=== PATIENT | male | born 1940 | race African-American/Black ===

== ENCOUNTER 2018-01-04 14:18 | Inpatient (IN) | payer BC, OTHER ==
[~2018-01-04] VITALS: Ht 175.3 cm; Wt 83.1 kg
--- NOTE | ~2018-01-04 | PLAN ---
[facility] [place] [address] REHAB UNIT PLAN OF CARE Name: MACARENA HINDS Room #: 506-1 ADM IN M.R.#: [id number] Admission: 01/04/18 Attend Phys: Sean Posada MD Discharge: Date of : 40 Report #: [id number] THIS REPORT FOR: //name// CC: Sean Posada [facility] unknown DATE OF SERVICE: 01/06/2018 SUBJECTIVE: The patient was seen back earlier this morning. Temperature 36.6, pulse 77, respirations 18 and blood pressure 151/74. He was in no distress. He has been involved with therapies with transfers, contact guard, gait contact guard 250 feet without a device. Standby assistance with bed mobility. In occupational therapy, lower body dressing is mod assist with upper body dressing, supervision. He does have mild comprehensive deficits. ASSESSMENT: 1. 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 2. History of pituitary tumor resection. 3. Functional mobility and ADL deficits. 4. History of bowel obstruction, status post colon resection. 5. Hypertension. 6. Hyperlipidemia. 7. Diabetes mellitus. 8. Chronic lower extremity edema for which he uses support hose. 9. Chronic kidney disease stage 4. 10. Gastrointestinal and deep venous thrombosis prophylaxis. PLAN: The overall plan of care is based on the preadmission screen, post-admission physician evaluation and information garnered from therapy assessments. 1. Estimated length of stay is at least 7-10 days. 2. Medical prognosis is reasonably good. 3. Anticipated interventions includes the interdisciplinary acute inpatient rehabilitation program with PT and OT and speech, rehabilitation nursing assisting regarding medication management, skin care prophylaxis, bowel and bladder issues and nursing education. We are having the career development consultant physicians involved as well. 4. Anticipated functional outcomes would be for the patient to become modified independent with transfers, mobility and ADLs, so that he can return back to the home setting. 5. Discharge destination would be back to his home where he lives in a house alone, 2 stories can stay on the 1st floor. 6. Expected therapy by discipline includes PT, OT and speech 1 hour per day each five days a week throughout the [place] [address] REHAB UNIT PLAN OF CARE Name: GUZMANMACARENAKRISTIAN ALVAREZ Room #: 506-1 ADM IN ..#: [id number] Admission: 01/04/18 Attend Phys: Sean Posada MD Discharge: Date of : 40 Report #: [id number] rehabilitation stay. We may be able to decrease the speech therapy in favor of more PT and OT depending upon how he does. <ELECTRONICALLY SIGNED> By: Sean Posada MD 01/12/18 1023 [id number] Sean Posada MD /nt
--- NOTE | ~2018-01-04 | H ---
[facility] [place] [address] HISTORY AND PHYSICAL Name: MACARENA HINDS Room #: 506-1 ADM IN M.R.#: [id number] Admission: 01/04/18 Attend Phys: Sean Posada MD Discharge: Date of : 40 Report #: [id number] THIS REPORT FOR: //name// CC: Sean Posada [facility] unknown DATE OF SERVICE: 01/04/2018 HISTORY OF PRESENT ILLNESS: The patient is a 77-year-old -[place] male with a prior history of a known pituitary tumor, status post resection in 2012 with residual tumor within the cavernous sinus. He underwent radiation. He was followed by [facility]. He began having worsening vision, headaches, bleeding from his nose. Repeat scan showed mass within the sphenoid sinus and skull base. Biopsy was consistent with sarcoma. He underwent endoscopic transsphenoidal resection of the sphenoid sinus tumor, fascia graft by incision and area exposure, complex sheet bifrontal craniotomy, intradural resection intradural parasellar, cavernous sinus, nasal septal flap, 01/02/2018. He gradually stabilized postoperatively. He has functional mobility and ADL deficits. He has now been admitted for acute in-hospital inpatient rehabilitation here at [facility]. PAST MEDICAL HISTORY: Includes hypertension, diabetes mellitus, chronic lower extremity edema for which he wears support hose, pituitary tumor, chronic kidney disease stage 4, clival sarcoma. PAST SURGICAL HISTORY: Includes pituitary excision, tonsil, colon resection x 2. MEDICATIONS: Please see the full medication listing. This includes vitamins, herbals, and supplements. HABITS: No history of tobacco or alcohol abuse. SOCIAL HISTORY: Lives in a house alone, 2 stories, stays on the 1st floor. Bathroom, however, is on the second floor, and there is not a bathroom on the first floor. He did not utilize gait aids. REVIEW OF SYSTEMS: Did not offer any current complaints of chest pain, shortness of breath or abdominal discomfort. Denies any current facial pain or nasal pain. He has the chronic lower extremity edema for which he wears a support hose. ALLERGIES: ESOMEPRAZOLE, METFORMIN, PIOGLITAZONE. PHYSICAL EXAMINATION: GENERAL: The patient is a 77-year-old -[place] male, in no obvious [address] [address] HISTORY AND PHYSICAL Name: MACARENA HINDS Room #: 506-1 [facility] IN [facility]#: [id number] Admission: 01/04/18 Attend Phys: Sean Posada MD Discharge: Date of : 40 Report #: [id number] distress. VITAL SIGNS: Last recorded temperature 98, pulse 82, respirations 18, blood pressure 161/62. The patient is alert, oriented. HEENT: Appeared to be benign. He does have some dry blood in his nares. He is able to verbalize reasonably well. No obvious word finding difficulties. CHEST: Sounded clear to auscultation. CARDIOVASCULAR: Regular rate and rhythm. ABDOMEN: Bowel sounds positive, nontender. GENITOURINARY AND RECTAL: Deferred. Bilateral lower extremity edema, grade 1-2+ pitting. No calf swelling per se. Functional range of motion of both upper extremities. Strength is grade 4-/5. DTRs are trace to 1. LOWER EXTREMITIES: No focal calf swelling, functional range of motion, strength is grade 4-/5 to 3+/5. DTRs are trace to 1. ASSESSMENT: A 77-year-old -[place] male with the following problem list: 1. Sarcoma resection from the skull base nasal sinus tumor. 2. Functional mobility and ADL deficits. 3. History of pituitary tumor resection. 4. History of bowel obstruction, status post colon resection. 5. Hypertension. 6. Hyperlipidemia. 7. Diabetes mellitus. 8. Chronic lower extremity edema for which he uses support hose. 9. Chronic kidney disease stage 4. 10. Gastrointestinal and deep venous thrombosis prophylaxis. No anticoagulation secondary to epistaxis. He is on Protonix. The patient wishes to be a DNR. PLAN: The patient is admitted for acute in-hospital inpatient rehabilitation. From a postadmission physician evaluation perspective, there are no relevant changes since the preadmission screening. Please see the above review of prior and current medical and functional conditions and comorbidities. Please see the patient's previous and current functional status. As far as risk of complications, he has multiple medical comorbidities as noted above. The initial plan of care involves the interdisciplinary acute inpatient rehabilitation program with goal of maximizing his functional independence. He can hopefully return back to his prior living situation. Prognosis is reasonably good with estimated length of stay probably at least 7-10 days, pending progress. Potential barriers would include his multiple medical comorbidities and decreased functional status. The patient meets diagnostic criteria for an acute in-hospital inpatient rehabilitation stay. He meets medical necessity criteria. We will have the [address] [address] HISTORY AND PHYSICAL Name: MACARENA HINDS Room #: 506-1 ADM IN M.R.#: [id number] Admission: 01/04/18 Attend Phys: Sean Posada MD Discharge: Date of : 40 Report #: [id number] email production consultant physicians continue to follow. He does have the tolerance for therapies and has appropriate discharge goals back to the home setting. <ELECTRONICALLY SIGNED> By: Sean Posada MD 01/05/18 [id number] Sean Posada MD /nt
--- NOTE | ~2018-01-04 | HC ---
[facility] [place] [address] CONSULTATION Name: MACARENA HINDS Room #: 506-1 ADM IN M.R.#: [id number] Admission: 01/04/18 Attend Phys: Sean Posada MD Discharge: Date of : 40 Report #: [id number] THIS REPORT FOR: //name// CC: Sean Posada [facility] unknown DATE OF SERVICE: 01/07/2018 NEUROBEHAVIORAL STATUS EXAM: ATTENDING PHYSICIAN: Sean Posada MD. SUPERVISOR WOOD CREW: Edison Rolle, PhD. CLINICAL PRESENTATION: The patient is a 77-year-old male with a history of pituitary tumor. He is status post resection in 2012 with residual tumor within the cavernous sinus. The patient had undergone radiation and was followed by [facility] Department. He began having deterioration in functioning that included vision, headaches and bleeding from his nose. A biopsy revealed a sarcoma within the sphenoid sinus and skull base. The patient underwent endoscopic transsphenoidal resection of the sphenoid sinus tumor, fascia graft by incision and a complex sheath bifrontal craniotomy with intradural resection and nasal septal flap. His medical history also includes hypertension, diabetes mellitus, chronic lower extremity edema, and chronic kidney disease stage 4. A complete description of his medical condition and history can be found in his medical record. Neuropsychological consultation was requested to provide assistance in the assessment of cognitive and emotional status and to provide recommendations and services. Prior to this most recent medical event, he was living independently in his own home. The patient has completed an BLU. He is not and has no children. 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 He was continuing to work up until this most recent medical event. The patient had one brother that is . He reports having a good social support network. TECHNIQUES UTILIZED: Clinical interview, review of medical records, staff consultation and behavioral observation, mini mental status exam 2 standard version, and clock drawing and verbal fluency assessment (letter and category). EXAMINATION FINDINGS: The patient was alert and cooperative with the assessment. There is no evidence of aphasia. His thoughts are logical and goal oriented. There is no evidence of thought disorder. He does not report subjective depression. However, he does indicate concern about his recovery and ability to return to his prior lifestyle. He primarily reports symptoms to be endurance and fatigue. Because he was living independently, he indicates that [facility] [address] [place] [address] CONSULTATION Name: MACARENA HINDS Room #: 506-1 [facility] IN ..#: [id number] Admission: 01/04/18 Attend Phys: Sean Posada MD Discharge: Date of : 40 Report #: [id number] he need to be able to be at that same level prior to his discharge. His performance on the MMSE 2 brief version is within normal limits with a raw score of 15 of 16. He was 2 of 3 for immediate recall. Performance on the MMSE 2 standard version is within normal limits with a raw score of 29 of 30. Clock drawings within normal limits. Letter fluency is in the low average range with a T score of 39 and percentile rank of 14. Category fluency is low average with a T score of 40 and percentile rank of 16. Overall, verbal fluency was in the borderline range with a T score of 34, which is at the 5th percentile. The patient is presenting with mild deficits in cognition that are associated with executive functioning. He is alert and oriented. DIAGNOSTIC IMPRESSION: Mild neurocognitive disorder, due to medical etiology, without behavior disorder. Unspecified anxiety disorder. RECOMMENDATIONS: The patient will likely benefit from assistance with planning and problem solving. Anxiety about his well being and concerns are to be expected given the extent of independence that he was experiencing prior to this most recent medical event. Adjustment to disability, counseling may be of benefit to assist in adjustment to current disability. The patient is also likely to require increased assistance with management of medical, financial and nutritional needs upon his return home. Assisting the patient in recognizing his deficits and how to go about obtaining adequate support services will be of benefit. Thank you very much for allowing me to provide the consultation on this patient. <ELECTRONICALLY SIGNED> By: Edison Rolle, PhD 01/15/18 [id number] Edison Rolle, PhD /nt
[2018-01-04] MEDS ORDERED: LOTREL 10-20 M1 EACH PO (16:37)
[2018-01-04] MEDS ORDERED: ATORVASTATIN CA40 MG PO (16:38)
[2018-01-04] MEDS ORDERED: ROCALTROL0.25 MCG PO (16:39)
[2018-01-04] MEDS ORDERED: IRON325 PO (16:39)
[2018-01-04] MEDS ORDERED: AMARYL4 MG PO (16:40)
[2018-01-04] MEDS ORDERED: LOPRESSOR50 PO (16:41)
[2018-01-04] MEDS ORDERED: ONGLYZA2.5 MG PO (16:42)
[2018-01-04] MEDS ORDERED: TORSEMIDE20 MG PO (16:43)
[2018-01-04] MEDS ORDERED: MULTIVITAMINS1 EAC7 PO (16:45)
[2018-01-04 20:00] VITALS: BP 161/62
[2018-01-05 04:49] LABS: CALCIUM 8.6 mg/dL (8.5-10.1); CREATININE 3.1 mg/dL (0.7-1.3); POTASSIUM 3.7 mmol/L (3.5-5.1)
[2018-01-05 05:29] LABS: HEMATOCRIT 25.7 % (42.0-52.0); HEMOGLOBIN 8.7 gm/dL (14.0-18.0); MCH 29.5 pg (26.0-34.0); MCV 86.8 fL (80.0-100.0); RBC 2.96 mil/uL (4.50-6.00); RDW 14.7 % (10.5-14.5); WBC 8.4 thou/uL (4.0-11.0)
[2018-01-05 07:40] VITALS: BP 158/77
[2018-01-05 20:39] VITALS: BP 151/74
[2018-01-06 07:30] VITALS: BP 178/73
[2018-01-06 19:10] VITALS: BP 164/81
[2018-01-07 07:31] VITALS: BP 164/67
[2018-01-07 21:20] VITALS: BP 167/94
[2018-01-08 07:15] VITALS: BP 187/83
[2018-01-08 13:55] VITALS: BP 148/74
[2018-01-08 19:35] VITALS: BP 143/74
[2018-01-09 07:30] VITALS: BP 156/79
[2018-01-09 19:24] VITALS: BP 142/78
[2018-01-10 04:19] LABS: HEMATOCRIT 25.3 % (42.0-52.0); HEMOGLOBIN 8.5 gm/dL (14.0-18.0); MCH 29.6 pg (26.0-34.0); MCHC 33.7 g/dL (28.0-37.0); MCV 87.9 fL (80.0-100.0); PLATELET COUNT 184 thou/uL (150-400); RBC 2.88 mil/uL (4.50-6.00); RDW 14.9 % (10.5-14.5); WBC 8.1 thou/uL (4.0-11.0)
[2018-01-10 04:37] LABS: CALCIUM 8.7 mg/dL (8.5-10.1); CREATININE 3.4 mg/dL (0.7-1.3); MAGNESIUM 2.1 mg/dL (1.8-2.4)
[2018-01-10 05:36] LABS: ABSOLUTE NEUTROPHILS 5.8 thou/uL (1.4-8.2); METAMYELOCYTES 6 %; MYELOCYTES 2 %
[2018-01-10 07:30] VITALS: BP 177/80
[2018-01-10 20:30] VITALS: BP 187/91
[2018-01-10 22:30] VITALS: BP 157/62
[2018-01-11 06:11] VITALS: BP 162/82
[2018-01-11 07:25] VITALS: BP 185/60
[2018-01-11 21:42] VITALS: BP 189/93
[2018-01-11 23:30] VITALS: BP 162/78
[2018-01-12 08:37] VITALS: BP 168/67
[2018-01-12] MEDS ORDERED: DEEP SEA NASAL44 M1 NASAL ×2 (09:33→17:32)
[2018-01-12] MEDS ORDERED: MULTIVITAMINS1 EAC7 PO (17:32)
[2018-01-12] MEDS ORDERED: AMARYL4 MG PO (17:32)
[2018-01-12] MEDS ORDERED: ONGLYZA2.5 MG PO (17:32)
[2018-01-12] MEDS ORDERED: ATORVASTATIN CA40 MG PO (17:32)
[2018-01-12] MEDS ORDERED: ROCALTROL0.25 MCG PO (17:32)
[2018-01-12] MEDS ORDERED: LOTREL 10-20 M1 EACH PO (17:32)
[2018-01-12] MEDS ORDERED: IRON325 PO (17:32)
[2018-01-12] MEDS ORDERED: TORSEMIDE20 MG PO (17:32)
[2018-01-12] MEDS ORDERED: LOPRESSOR50 PO (17:32)
[2018-01-12 21:14] VITALS: BP 187/76
[2018-01-13 07:35] VITALS: BP 197/72
[2018-01-13 19:40] VITALS: BP 180/91
[2018-01-14 07:20] VITALS: BP 176/97
[2018-01-14 20:00] VITALS: BP 187/84
[2018-01-15 09:09] VITALS: BP 187/84
[2018-01-15 10:19] VITALS: BP 153/68
[2018-01-15] MEDS ORDERED: AMARYL4 MG PO (17:03)
== END 2018-01-15 19:24 | disposition home health service (06) | DRG 951 ==
PROVIDERS: Nurse Practitioner; Nurse Practitioner Family
DX: Z74.09 Other reduced mobility (principal); C41.0 Malignant neoplasm of bones of skull and face; N18.4 Chronic kidney disease, stage 4 (severe); R53.81 Other malaise; E78.5 Hyperlipidemia, unspecified; E11.22 Type 2 diabetes mellitus with diabetic chronic kidney disease; I12.9 Hypertensive chronic kidney disease with stage 1 through stage 4 chronic kidney disease, or unspecified chronic kidney disease; R04.0 Epistaxis; D49.1 Neoplasm of unspecified behavior of respiratory system; E11.649 Type 2 diabetes mellitus with hypoglycemia without coma; Z66 Do not resuscitate; G31.84 Mild cognitive impairment of uncertain or unknown etiology; F41.9 Anxiety disorder, unspecified; Z60.2 Problems related to living alone; R60.0 Localized edema; Z79.84 Long term (current) use of oral hypoglycemic drugs; Z79.899 Other long term (current) drug therapy; Z88.8 Allergy status to other drugs, medicaments and biological substances; Z90.49 Acquired absence of other specified parts of digestive tract
CPT/HCPCS: 10112